=== PATIENT | female | born 1970 | race Caucasian/White ===

== ENCOUNTER 2017-04-28 07:04 | Day surgery (SDC) | payer OTHER ==
[2017-04-28] MEDS ORDERED: DIPHENHYDRAMINE HCL 50 MG/ML VIAL ONE (07:07)
[2017-04-28] MEDS ORDERED: ONDANSETRON HCL INJ/PF 4 MG/2 ML SDV ONE (07:08)
[2017-04-28] MEDS ORDERED: NALOXONE HCL INJ/PF 0.4 MG/1 ML SDV ONE (07:08)
[2017-04-28] MEDS ORDERED: GLUCAGON,HUMAN RECOMB 1 MG INJ ONE (07:09)
[2017-04-28] MEDS ORDERED: EPINEPHRINE INJ 1 MG/10 ML DISP.SYRIN ONE (07:09)
[2017-04-28] MEDS ORDERED: FLUMAZENIL INJ 0.5 MG/5 ML VIAL ONE (07:09)
[2017-04-28] MEDS ORDERED: LIDOCAINE 0.5% INJ-PF (5 MG/ML) 50 ML SDV ONE (07:30)
[2017-04-28] MEDS: MIDAZOLAM 2 MG/2 ML INJ ONE ×2 (08:15→08:18)
[2017-04-28] MEDS: FENTANYL CITRATE INJ/PF 100 MCG/2 ML AMPUL ONE ×2 (08:17→08:20)
--- NOTE | 2017-04-28 09:22 | Operative Report ---
Operative Report DATE OF SURGERY: 04/28/17 Operative Report: The risks, benefits and alternatives of the procedure including risks of bleeding, perforation requiring surgery are explained to the patient in detail and informed consent is obtained. Patient was taken back to the endoscopy suite and placed in the left, lateral decubital position. Timeout was called. Conscious sedation medications are provided. A rectal examination is done which did not reveal any masses, tears or fissures. An Olympus videoscope is inserted into the patient's rectum appears carefully advanced all the way to the cecum. The cecum was identified by the usual anatomical landmarks of the ileocecal valve as well as the appendiceal office. Photodocumentation was obtained. The scope was then sequentially pulled back via the various segments of the colon including the ascending colon, hepatic flexure, transverse colon, splenic flexure, descending colon and finding to the rectosigmoid portions of the colon. Retroflexion maneuver is performed. PREOPERATIVE DIAGNOSIS: Personal history of polyp POSTOPERATIVE DIAGNOSIS: Normal screening colonoscopy OPERATION: Diagnostic colonoscopy SURGEON: HOLLEY DYSON ANESTHESIA: Moderate Sedation - 4 mg of Versed, 100 mcg of fentanyl. Conscious sedation monitoring time 30 minutes. TISSUE REMOVED OR ALTERED: None. COMPLICATIONS: None. ESTIMATED BLOOD LOSS: None. INTRAOPERATIVE FINDINGS: As noted above. PROCEDURE: Patient tolerated procedure well. No immediate postprocedure complications are noted. Patient discharged in good condition. Discharge date 04/28/2017. Discharge diet: Regular. Discharge activity: Regular. 5-7 year surveillance colonoscopy. Patient is instructed to call the office or proceed to the emergency room should there be any further problems or questions.
[2017-04-28 09:29] VITALS: BP 103/68
== END 2017-04-28 09:30 | disposition home or self-care (01) ==
LOC: OROUT 07:04
PROVIDERS: ATTEND Internal Medicine Gastroenterology
PROC: 0DJD8ZZ Inspection of Lower Intestinal Tract, Via Natural or Artificial Opening Endoscopic (ICD-10-PCS; principal; 2017-04-28 08:00)
DX: Z12.11 Encounter for screening for malignant neoplasm of colon (principal); Z86.010 Personal history of colon polyps; D64.9 Anemia, unspecified; Z79.899 Other long term (current) drug therapy
CPT/HCPCS: 45378; J2250; J3010; J3490; J0171; J1200; J1610; J2310; J2405

== ENCOUNTER 2018-07-17 09:57 | Emergency (ER) | payer OTHER ==
[2018-07-17 10:50] LABS: ABSOLUTE LYMPHOCYTES (AUTO) 0.9 10^3/uL (0.5-4.7); ABSOLUTE MONOCYTES (AUTO) 0.3 10^3/uL (0.1-1.4); ABSOLUTE NEUT (AUTO) 4.2 10^3/uL (1.7-8.2); BASOPHILS % (AUTO) 0.2 % (0-2); EOSINOPHILS % (AUTO) 0.5 % (0-6); HEMATOCRIT 39.5 % (36.0-47.0); HEMOGLOBIN 13.8 g/dL (12.0-15.5); LYMPHOCYTES % (AUTO) 15.9 % (13-45); MEAN CORPUSCULAR VOLUME 94 fl (80-97); MONOCYTES % (AUTO) 4.8 % (3-13); PLATELET COUNT 186 10^3/uL (150-450); RED BLOOD COUNT 4.19 10^6/uL (3.72-5.28); SEGMENTED NEUTROPHILS % (AUTO) 78.6 % (42-78); TOTAL CELLS COUNTED % (AUTO) 100 %; WHITE BLOOD COUNT 5.4 10^3/uL (4.0-10.5)
--- NOTE | 2018-07-17 10:57 | ER Document Report ---
ED General - General Chief Complaint: Near Syncope Stated Complaint: DIZZINESS Time Seen by Provider: 07/17/18 10:34 Primary Care Provider: TINA FLORES PA-C [PHYSICIAN METALWORKING SPECIALIST] - Follow up in 3-5 days Notes: Patient is a 47-year-old female that presents to the emergency department for chief complaint of tailbone pain and near syncope. Patient states that she went to the urgent care just prior to ED arrival, with complaint of tailbone pain, while she was standing there, she started getting lightheaded, and nauseous, had one episode of vomiting. Because of this she was transferred to the emergency department. She states she had been standing most the day because she was having pain in her tailbone. She was not drinking as much as usual. She states that her pain in her tailbone started on Friday, got progressively worse over the past few days. She does work on her feet and lift things on a constant basis. Denies any rectal pain or rectal bleeding, states she has not had a bowel movement about 2 days either. She reports a history of gout and is concerned that maybe this is gout in her tailbone, which I did discuss with her it would be of normal, but more likely this is related to her work, she denies any injuries that she can think of. She currently rates her pain as a 4 out of 10 describes it as an uncomfortable aching sensation in the tailbone region. She no longer feels lightheaded as she received IV fluids by EMS, and she was positive from orthostatics by EMS prior to ED arrival. Past Medical History: Gout Past Surgical History: Denies major surgical history Social History: Denies tobacco, alcohol or drug use. Family History: Reviewed and noncontributory for presenting illness Allergies: Reviewed, see documented allergy list. REVIEW OF SYSTEMS: Other than noted above, the 12 point review of systems was reviewed with the patient and were negative, all pertinent findings are included in the HPI. PHYSICAL EXAMINATION: Vital signs reviewed, nursing noted reviewed. GENERAL: Well-appearing, well-nourished and in no acute distress. HEAD: Atraumatic, normocephalic. EYES: Eyes appear normal, extraocular movements intact, sclera anicteric, conjunctiva are normal. ENT: nares patent, oropharynx clear without exudates. Moist mucous membranes. NECK: Normal range of motion, supple without lymphadenopathy LUNGS: Breath sounds clear to auscultation bilaterally and equal. No wheezes rales or rhonchi. HEART: Regular rate and rhythm without murmurs ABDOMEN: Soft, nontender, normoactive bowel sounds. No rebound, guarding, or rigidity. No masses appreciated. Back: There is tenderness to palpation over the sacrum and tailbone, no lesions or redness noted. EXTREMITIES: Nontender, good range of motion, no pitting or edema. NEUROLOGICAL: No focal neurological deficits. Moves all extremities spontaneously Motor and sensory grossly intact on exam. PSYCH: Normal mood, normal affect. SKIN: Warm, Dry, normal turgor, no rashes or lesions noted on exposed skin TRAVEL OUTSIDE OF THE [place] IN LAST 30 DAYS: No - Related Data Allergies/Adverse Reactions: No Known Allergies Allergy (Verified 07/17/18 10:09) Past Medical History - Social History Smoking Status: Never Smoker Frequency of alcohol use: None Drug Abuse: None Family History: Reviewed & Not Pertinent Patient has suicidal ideation: No Patient has homicidal ideation: No - Past Medical History Cardiac Medical History: Denies: Hx Coronary Artery Disease, Hx Heart Attack, Hx Hypertension Pulmonary Medical History: Reports: Hx Bronchitis Denies: Hx Asthma, Hx COPD, Hx Pneumonia Neurological Medical History: Denies: Hx Cerebrovascular Accident, Hx Seizures Renal/ Medical History: Denies: Hx Peritoneal Dialysis GI Medical History: Reports: Hx Gastroesophageal Reflux Disease Musculoskeletal Medical History: Denies Hx Arthritis Past Surgical History: Denies: Hx Hysterectomy - Immunizations Hx Diphtheria, Pertussis, Tetanus Vaccination: Yes Physical Exam - Vital signs Vitals: Resp Pulse Ox 16 100 07/17/18 10:03 07/17/18 10:03 Course - Re-evaluation Re-evalutation: Patient seen and examined vital signs reviewed. Laboratory data and/or imaging were ordered as appropriate for the patient's presenting symptoms and complaint, with consideration of any critical or life threatening conditions that may be associated with their obtained history and exam as noted above. Patient was treated with IV fluid, and Toradol Results were reviewed when available and demonstrated negative imaging, and blood work was unremarkable The patient was re-evaluated and was stable and improved, lightheadedness completely resolved, pain was much improved as well Evaluation was most consistent with coccydynia near syncope, believe the patient's near syncope was due to orthostasis and mild dehydration, because it did improve with fluids, she was orthostatic positive, her coccydynia is likely from repetitive use, and driving, advised NSAIDs, and getting a donut cushion to help improve this. Results were discussed with the patient at this point, after careful consideration I feel that that patient can be discharged from the emergency department, the patient was educated treatments and reasons to return to the emergency department based on their presumed diagnosis as noted above, they were advised to followup with a primary care physician in 2-3 days. Patient was agreeable to plan of care. *Note is created using voice recognition software and may contain spelling, syntax or grammatical errors. Laboratory 07/17/18 07/17/18 07/17/18 10:36 10:36 10:36 WBC 5.4 RBC 4.19 Hgb 13.8 Hct 39.5 MCV 94 MCH 33.0 MCHC 35.0 RDW 13.0 Plt Count 186 Seg Neutrophils % 78.6 H Lymphocytes % 15.9 Monocytes % 4.8 Eosinophils % 0.5 Basophils % 0.2 Absolute Neutrophils 4.2 Absolute Lymphocytes 0.9 Absolute Monocytes 0.3 Absolute Eosinophils 0.0 Absolute Basophils 0.0 Sodium 137.5 Potassium 5.3 H Chloride 103 Carbon Dioxide 27 Anion Gap 8 BUN 18 Creatinine 0.74 Est GFR ( Amer) > 60 Est GFR (Non-Af Amer) > 60 Glucose 88 Uric Acid Calcium 9.3 Total Bilirubin 1.2 Direct Bilirubin 0.2 Neonat Total Bilirubin Not Reportable Neonat Direct Bilirubin Not Reportable Neonat Indirect Bili Not Reportable AST 23 ALT 38 Alkaline Phosphatase 52 Creatine Kinase 40 Troponin I < 0.012 Total Protein 6.5 Albumin 3.8 Urine Color Urine Appearance Urine pH Ur Specific [place] Urine Protein Urine Glucose (UA) Urine Ketones Urine Blood Urine Nitrite Urine Bilirubin Urine Urobilinogen Ur Leukocyte Esterase Urine WBC (Auto) Urine RBC (Auto) Squamous Epi Cells Auto Urine Mucus (Auto) Urine Ascorbic Acid 07/17/18 07/17/18 10:36 10:50 WBC RBC Hgb Hct MCV MCH MCHC RDW Plt Count Seg Neutrophils % Lymphocytes % Monocytes % Eosinophils % Basophils % Absolute Neutrophils Absolute Lymphocytes Absolute Monocytes Absolute Eosinophils Absolute Basophils Sodium Potassium Chloride Carbon Dioxide Anion Gap BUN Creatinine Est GFR ( Amer) Est GFR (Non-Af Amer) Glucose Uric Acid 3.5 Calcium Total Bilirubin Direct Bilirubin Neonat Total Bilirubin Neonat Direct Bilirubin Neonat Indirect Bili AST ALT Alkaline Phosphatase Creatine Kinase Troponin I Total Protein Albumin Urine Color YELLOW Urine Appearance CLEAR Urine pH 6.0 Ur Specific [place] 1.018 Urine Protein NEGATIVE Urine Glucose (UA) NEGATIVE Urine Ketones NEGATIVE Urine Blood NEGATIVE Urine Nitrite NEGATIVE Urine Bilirubin NEGATIVE Urine Urobilinogen NEGATIVE Ur Leukocyte Esterase NEGATIVE Urine WBC (Auto) 1 Urine RBC (Auto) 2 Squamous Epi Cells Auto 1 Urine Mucus (Auto) FEW Urine Ascorbic Acid NEGATIVE Sacrum and Coccyx X-Ray 07/17/18 11:17 IMPRESSION: No fracture. - Vital Signs Vital signs: Temp Pulse Resp BP Pulse Ox 97.7 F 79 13 113/75 100 07/17/18 10:10 07/17/18 10:55 07/17/18 12:01 07/17/18 12:01 07/17/18 12:01 - Laboratory Result Diagrams: 07/17/18 10:36 07/17/18 10:36 Laboratory results interpreted by me: 07/17/18 07/17/18 10:36 10:36 Seg Neutrophils % 78.6 H Potassium 5.3 H - EKG Interpretation by Me Additional EKG results interpreted by me: EKG demonstrates sinus rhythm with a ventricular rate of 66 bpm, normal axis, normal intervals, no evidence of acute ischemia, no prior for comparison. Discharge - Discharge Clinical Impression: Coccydynia, Near syncope Condition: Stable Disposition: HOME, SELF-CARE Instructions: Near Syncopal Episode ([facility]) Additional Instructions: I recommend taking 2 [id number] Aleve/naproxen, twice daily for at least 1 week to help relieve some of the pain in your tailbone, and please follow-up with your primary care physician. I also recommend using a "doughnut" cushion to help relieve some pressure over the tailbone. Referrals: TINA FLORES PA-C [PHYSICIAN METALWORKING SPECIALIST] - Follow up in 3-5 days
[2018-07-17 11:06] LABS: ALANINE AMINOTRANSFERASE 38 U/L (9-52); ALBUMIN 3.8 g/dL (3.5-5.0); ALKALINE PHOSPHATASE 52 U/L (38-126); ANION GAP 8 (5-19); ASPARTATE AMINO TRANSFERASE 23 U/L (14-36); BILIRUBIN,DIRECT 0.2 mg/dL (0.0-0.4); BILIRUBIN,TOTAL 1.2 mg/dL (0.2-1.3); BLOOD UREA NITROGEN 18 mg/dL (7-20); CALCIUM 9.3 mg/dL (8.4-10.2); CARBON DIOXIDE 27 mmol/L (22-30); CHLORIDE 103 mmol/L (98-107); CREATINE KINASE 40 U/L (30-135); GLUCOSE 88 mg/dL (75-110); POTASSIUM 5.3 mmol/L (3.6-5.0); SODIUM 137.5 mmol/L (137-145); TOTAL PROTEIN 6.5 g/dL (6.3-8.2)
[2018-07-17 11:12] LABS: APPEARANCE,URINE CLEAR; BILIRUBIN,URINE NEGATIVE (NEGATIVE); COLOR,URINE YELLOW; GLUCOSE, URINE NEGATIVE (NEGATIVE); KETONES,URINE NEGATIVE (NEGATIVE); LEUKOCYTE ESTERASE,URINE NEGATIVE (NEGATIVE); NITRITE,URINE NEGATIVE (NEGATIVE); PROTEIN,URINE NEGATIVE (NEGATIVE); URINE SPECIFIC GRAVITY 1.018; UROBILINOGEN,URINE NEGATIVE mg/dL (<2.0)
[2018-07-17] MEDS ORDERED: KETOROLAC TROMETHAMINE INJ/PF 30 MG/1 ML SDV IV ONE (11:17)
[2018-07-17 12:09] VITALS: BP 113/75
--- NOTE | 2018-07-17 12:19 | RADIOLOGY REPORT (SQ) ---
EXAM DESCRIPTION: SACRUM AND COCCYX COMPLETED DATE/TIME: 07/17/2018 11:54 am REASON FOR STUDY: coccydynia COMPARISON: None. NUMBER OF VIEWS: Three views. TECHNIQUE: AP, lateral, and tilt views of the sacrum and coccyx. LIMITATIONS: None. FINDINGS: MINERALIZATION: Normal. BONES: No acute fracture or dislocation. No worrisome bone lesions. SOFT TISSUES: No soft tissue swelling. Tiny metallic radiopaque foreign body right of midline in the anterior pelvis. OTHER: No other significant finding. IMPRESSION: No fracture. TECHNICAL DOCUMENTATION: JOB ID: [id number] [id number] 2010 [employer]- All Rights Reserved Reading location - IP/workstation name: [email or web address]
[2018-07-17] MEDS ORDERED: DEXAMETHASONE SOD PHOS INJ 10 MG/1 ML VIAL IM ONE (12:23)
--- NOTE | 2018-07-17 22:41 | EKG REPORT ---
SEVERITY:- NORMAL ECG - SINUS RHYTHM : Confirmed by: Katherine Scanlon MD 17-Jul-2018 22:40:44
== END 2018-07-17 12:44 | disposition home or self-care (01) ==
LOC: ER 09:57
DX: R55 Syncope and collapse (principal); M53.3 Sacrococcygeal disorders, not elsewhere classified; R42 Dizziness and giddiness
CPT/HCPCS: 93005; 99284; 96372; 96374; 36415; 82550; 84550; 85025; 80053; 81001; 84484; 72220; 93010; J1885; J1100